=== PATIENT | female | born 1995 | race Caucasian/White ===

== ENCOUNTER 2017-03-10 12:21 | Outpatient (CLI) | payer MEDICAID ==
[~2017-03-10] VITALS: Ht 157.5 cm; Wt 60.7 kg
[~2017-03-10 12:21] MED LIST: CYCL5TAB PO; NAPR-260 PO
[2017-03-10 12:47] VITALS: Ht 157.5 cm; Wt 60.7 kg
[2017-03-10 12:48] VITALS: BP 121/69; RESP 16
[2017-03-10] MEDS ORDERED: PREN1TAB17 PO (12:50)
[2017-03-10] MEDS ORDERED: FERR134T PO (12:51)
--- NOTE | 2017-03-10 13:33 | RADRPT ---
PROCEDURE: US biophysical profile. CLINICAL INDICATION: Hypertension. TECHNIQUE: Multiple sonographic images of the uterus were obtained. The images were revi ewed on a PACS workstation. COMPARISON: No prior studies are available for comparison. FINDINGS: There is a single live intrauterine gestation. heart rate is 143 beats per minute. The position is cephalic. The placenta is anterior grade II with no abruption or previa. The JAIRO is 14.5 cm. (Normal = 5-20 cm.) Breathing Movement: 2 Gross Body Movement: 2 Tone: 2 Qualitative Amniotic Fluid Volume: 2 TOTAL: 8 IMPRESSION: 1. The biophysical score is 8/8. RPTAT: QQ .Chan Gutiérrez MD, Date Time Electronically viewed and signed by .Chan Gutiérrez MD, on 03/10/2017 13:33 .R/
--- NOTE | 2017-03-10 15:01 | CONS ---
Date/Time of Note Date/Time of Note DATE: 03/10/17 TIME: 14:55 Consultation Date/Type/Reason Admit Date/Time March 10, 2017 OB triage consult Reason for Consultation This patient is a 21 years old 2 para 1 living 1 with estimated date of confinement of 04/06/2017 which makes her 36 weeks and 1 day today. She came in from her wrapper counter[facility] s clinic due to the fact that they found her blood pressure to be elevated 149/91. On examination she is a well-developed well-nourished woman, near term, in no acute distress. Her general vital signs appear to be normal with blood pressure of 121/69 , pulse rate 63, respirations 16 , temperature 98.9. Abdomen is soft heart tone is normal . we do not see very many contractions , heart tracing as I mentioned does have good variability, occasional acceleration no evidence of deceleration Constitutional: No chills, No diaphoresis, No disoriented, No febrile, No improved, No no complaints, No other, No poor po, No requiring IVF, No requiring O2 Eyes: No discharge, No no complaints, No other, No pain, No redness, No visual change ENT: No bleeding, No congestion, No discharge, No dysphagia, No no complaints, No other, No pain, No sore throat Respiratory: No cough, No no complaints, No other, No pain, No pleuritic pain, No shortness of breath, No sputum, No wheezing Cardiovascular: No chest pain, No edema, No lightheadedness, No no complaints, No orthopenea, No other, No palpitations, No paroxysmal nocturnal dyspnea Gastrointestinal: No blood, No constipation, No decreased appetite, No diarrhea , No flatus, No nausea, No no complaints, No other, No pain, No passing stool, No vomiting Genitourinary: No bleeding, No discharge, No dysuria, No flank pain, No hematuria, No no complaints, No other Musculoskeletal: other (Pelvic examination was not performed due to the fact that she does not have any contractions), No back pain, No bone/joint pain, No neck pain, No no complaints, No restricted range of motion, No swelling Skin: No bruising, No erythema, No laceration, No no complaints, No other, No pruritis, No rash, No skin lesions Neurologic: No confusion, No dizziness, No focal-weakness, No headache, No no complaints, No other, No seizure, No syncope Endocrine: No dry skin, No no complaints, No other, No polydypsia, No polyuria , No temp intolerance Lymphatic: No adenopathy, No lymphadema, No no complaints, No other, No tender nodes Additional Comments On ultrasound study the report was a single live intrauterine gestation with heart rate of 143 bpm, in vertex presentation , placenta was anterior, her biophysical profile was reported 03/29. NST was reactive Disposition : with these positive finding patient was discharged home with instruction to rest at home and follow her care in her physician's office. I should mention that on repeating her blood pressures in the triage they were not elevated : : 111/61 again 109/57 and again 119/55. Social History Smoking Status: Never smoker Exam/Review of Systems Vital Signs Vitals Vital Signs Date Time Temp Pulse Resp B/P Pulse Ox O2 Delivery O2 Flow Rate FiO2 03/10/17 12:48 98.0 16 121/69 Room Air KIRTI DUMONT MD Mar 10, 2017 15:01
--- NOTE | 2017-03-10 15:05 | TRIAGE ---
OB Triage Datetime Report Generated by CPN: 03/10/2017 15:05 Datetime: 03/10/2017 14:16 Stage of : OB Triage Labor Evaluation Frequency: IRREGULAR Monitor Mode: External Duration (sec)2399: 30-40 Pattern: Normal: <= 5 Contractions in 10 Minutes Resting Tone [place]: Relaxed Heart Rate FHR Baseline Rate: 135 Monitor Mode: External US Variability: Moderate 6-25 bpm Accelerations: 15X15 Decelerations: None Category: Category I Pain Presence: None/Denies Pain Type: N/A Vaginal Exam Membrane Status: Intact Datetime: 03/10/2017 12:54 Stage of : OB Triage Assessment Type: Triage Maternal Assessment Level of Consciousness: Fully Conscious DTR's/Clonus: DTRs 2+; No Clonus Headache: Denies Blurred Vision: No Respiratory Effort: Unlabored; Regular Rhythm; Equal Expansion Breath Sounds, Left: Clear and Equal Breath Sounds, Right: Clear and Equal Nausea/Vomiting: Denies RUQ Epigastric Pain: Denies Lower Extremities Edema: None Degree: None Upper Extremities Edema: None Degree: None Facial Edema: None Temperature Route: Oral Fall Risk Assessment History of Falling: (0) No Secondary Diagnosis: (0) No Ambulatory Aid: (0) Bedrest/Nurse Assist IV Therapy: (0) No Gait: (0) Normal/Bedrest/Immobile Mental Status: (0) Oriented to Own Ability Fall Score: 0 Fall Risk Score Definition: No Risk: No action required Monitor Mode: External Heart Rate FHR Baseline Rate: 145 Monitor Mode: External US Variability: Moderate 6-25 bpm Accelerations: 10X10 Category: Category II Pain Assessment Pain Scale: 0 Pain Presence: None/Denies Pain Type: N/A Datetime: 03/10/2017 12:53 Time of Arrival: 03/10/2017 12:18 EGA: 36.1 Arrived By: Ambulatory Arrived From: Office Chief Complaint: SENT FROM CLINIC FOR ELEVATED B/P Movement: Present Rupture of Membranes: Denies Vaginal Bleeding: None Vaginal Discharge: Denies Recent Sexual Intercouse: Denies Abdominal Trauma: Not Applicable Patient Complaints: Contractions Time Provider Notified: 03/10/2017 13:02 Provider Notified: DR. MAJANO Initial Plan: LUCIE CASTAÑEDA, CALL
== END 2017-03-10 15:15 | disposition home or self-care (01) ==
LOC: OBT 12:21 → L-D 12:22 → OBT 15:15
PROVIDERS: ATTEND Obstetrics & Gynecology
DX: O26.893 Other specified pregnancy related conditions, third trimester (principal); Z3A.36 36 weeks gestation of pregnancy; R03.0 Elevated blood-pressure reading, without diagnosis of hypertension
CPT/HCPCS: 76818; Z7500; G0463

== ENCOUNTER 2017-03-24 16:11 | Outpatient (CLI) | payer MEDICAID ==
[~2017-03-24] VITALS: Ht 154.9 cm; Wt 61.3 kg
[~2017-03-24 16:11] MED LIST changes: -CYCL5TAB PO; +FERR134T PO; -NAPR-260 PO; +PREN1TAB17 PO
[2017-03-24 16:48] VITALS: BP 122/68; PULSE 65; Ht 154.9 cm; Wt 61.3 kg
--- NOTE | 2017-03-24 18:27 | RADRPT ---
PROCEDURE: US OB biophysical profile. CLINICAL INDICATION: evaluation TECHNIQUE: Multiple sonographic images of the pelvis were obtained. The images were reviewed on a PACS workstation. COMPARISON: No prior studies are available for comparison. FINDINGS: There is a single viable intrauterine gestation. Cardiac activity is present with 141 beats per min anuj. There is a vertex presentation. The placenta is anterior. There is no evidence of placental abruption. There is a normal amount of amniotic fluid with an JAIRO = 10.1 cm. Biophysical profile: movement 2/2 tone 2/2. breathing 2/2 JAIRO 2/2 Total 03/29 RPTAT: AA . IMPRESSION: Normal biophysical profile. Physician Nidhi Date Time Electronically viewed and signed by Physician Nidhi on 03/24/2017 18:27 /
--- NOTE | 2017-03-24 20:07 | PN ---
Triage Information Date/Time 03/24/1711/06/1999 Reason for visit: high blood pressure Weeks of Gestation 38w1d /Para Hypertention: none Additional information sent from office for elevated blood pressure Objective Vital Signs Date Time Temp Pulse Resp B/P Pulse Ox O2 Delivery O2 Flow Rate FiO2 03/24/17 16:48 98.3 65 122/68 Heart Rate: 140's Contractions: < 5 Minutes Apart Exam ftp/ long Results/Medications Imaging Results BPP8/8 EFM u.c mild not symptomatic tracing ok Disposition: Discharge Assessment/Plan IUP 38w1d latent phase no HTN UA pending discharge home with routine labor instructions will get u/a result ,if abnormal contact patient since she 's been here for 4hr already JOSE AWAD MD Mar 24, 2017 20:07
[2017-03-24 20:22] LABS: ADD UMIC NO; UR ASCORBIC ACID NEGATIVE (NEGATIVE); UR BILIRUBIN (Dip) NEGATIVE (NEGATIVE); UR BLOOD (Dip) NEGATIVE (NEGATIVE); UR CLARITY CLEAR (CLEAR); UR COLOR STRAW (YELLOW); UR GLUCOSE (Dip) NEGATIVE (NEGATIVE); UR KETONES (Dip) NEGATIVE (NEGATIVE); UR LEUKOCYTE ESTERASE (Dip) NEGATIVE Leu/ul (NEGATIVE); UR NITRITE (Dip) NEGATIVE (NEGATIVE); UR SPECIFIC GRAVITY (Dip) 1.006 (1.003-1.030); UR TOTAL PROTEIN (Dip) NEGATIVE (NEGATIVE); UR UROBILINOGEN (Dip) NEGATIVE (NEGATIVE)
--- NOTE | 2017-03-24 20:44 | TRIAGE ---
OB Triage Datetime Report Generated by CPN: 03/24/2017 20:44 Datetime: 03/24/2017 19:54 Labor Evaluation Frequency: 2-6 Monitor Mode: External Pattern: Normal: <= 5 Contractions in 10 Minutes Resting Tone [place]: Relaxed Heart Rate FHR Baseline Rate: 140 Monitor Mode: External US Variability: Moderate 6-25 bpm Accelerations: 15X15 Decelerations: None Category: Category I Datetime: 03/24/2017 19:30 Pain Assessment Pain Scale: 0 Pain Presence: None/Denies Pain Type: N/A Datetime: 03/24/2017 19:07 Vaginal Exam Dilatation (cms): 1.0 Effacement (%): 30 Station: -2 Exam By: Alfa LEE Vaginal Bleeding: None Cervix, Consistency: Soft Cervix, Position: Posterior Presentation 'A': Cephalic Datetime: 03/24/2017 17:52 Stage of : OB Triage Datetime: 03/24/2017 17:49 Labor Evaluation Frequency: 4-7 Monitor Mode: External Duration (sec)2399: 50-70 Pattern: Normal: <= 5 Contractions in 10 Minutes Resting Tone [place]: Relaxed Heart Rate FHR Baseline Rate: 130 Monitor Mode: External US Variability: Moderate 6-25 bpm Accelerations: 10X10 Decelerations: None Category: Category I Pain Assessment Pain Scale: 0 Pain Presence: None/Denies Pain Type: N/A Pain Goal: 3 Pain Relief Measures: Comfort Measures Vaginal Exam Dilatation (cms): 0.5 Effacement (%): 30 Station: -3 Exam By: S JESUS Vaginal Bleeding: None Cervix, Consistency: Soft Cervix, Position: Posterior Presentation 'A': Cephalic Datetime: 03/24/2017 16:44 Stage of : OB Triage Assessment Type: Triage Maternal Assessment Level of Consciousness: Fully Conscious DTR's/Clonus: DTRs 2+; No Clonus Headache: Denies Blurred Vision: No Respiratory Effort: Unlabored; Regular Rhythm; Equal Expansion Breath Sounds, Left: Clear and Equal Breath Sounds, Right: Clear and Equal Nausea/Vomiting: Denies RUQ Epigastric Pain: Denies Facial Edema: None Temperature Route: Axillary Fall Risk Assessment History of Falling: (0) No Secondary Diagnosis: (0) No Ambulatory Aid: (0) Bedrest/Nurse Assist IV Therapy: (0) No Gait: (0) Normal/Bedrest/Immobile Mental Status: (0) Oriented to Own Ability Fall Score: 0 Fall Risk Score Definition: No Risk: No action required Labor Evaluation Frequency: 0 Monitor Mode: External Pattern: Normal: <= 5 Contractions in 10 Minutes Resting Tone [place]: Relaxed Heart Rate FHR Baseline Rate: 130 Monitor Mode: External US Variability: Moderate 6-25 bpm Accelerations: None Category: Category II Pain Assessment Pain Scale: 0 Pain Presence: None/Denies Pain Type: N/A Pain Goal: 3 Pain Relief Measures: Comfort Measures Datetime: 03/24/2017 16:43 Time of Arrival: 03/24/2017 16:01 EGA: 38.1 Arrived By: Ambulatory Arrived From: Office Chief Complaint: SENT FROM OFFICE TO R/O PIH, INCREASE ALK PHOS.,DENIES UC'S BLEEDING OR UC'S Movement: Present Contractions: Denies/Absent Rupture of Membranes: Denies Vaginal Bleeding: None Vaginal Discharge: Denies Recent Sexual Intercouse: Denies Abdominal Trauma: Not Applicable Patient Complaints: None Initial Plan: MONITOR, VE, BPP Datetime: 03/10/2017 12:54 Fall Score: 0 Fall Risk Score Definition: No Risk: No action required Datetime: 03/10/2017 12:53 EGA: 36.1
== END 2017-03-24 20:00 | disposition home or self-care (01) ==
LOC: OBT 16:11 → L-D 16:12 → OBT 20:00
PROVIDERS: ATTEND Obstetrics & Gynecology
DX: O26.893 Other specified pregnancy related conditions, third trimester (principal); R03.0 Elevated blood-pressure reading, without diagnosis of hypertension; Z3A.38 38 weeks gestation of pregnancy
CPT/HCPCS: 76818; 81003; Z7500; G0463

== ENCOUNTER 2017-04-03 21:22 | Inpatient (IN) | payer MEDICAID ==
[~2017-04-03] VITALS: Ht 154.9 cm; Wt 63.1 kg
[2017-04-03 21:40] VITALS: Ht 154.9 cm; Wt 63.1 kg
--- NOTE | 2017-04-03 22:45 | HP ---
Date/Time of Note Date/Time of Note DATE: 04/03/17 TIME: 22:43 OB - History Hx of Present Free Text/Dictation 39+4 wks GA with suspected PPROM : 2 Para: 1 Care: Good Care Ultrasounds: Normal mid trimester US Obstetrical Complications: None Medical Complications: None Past Family/Social History * Past Medical, Surgical, Family and Obstetric Histories reviewed from chart. OB Admission Exam Physical Exam Cervical Dilatation: 1cm Effacement: 75% Station: -1 Membranes: Intact Heart Rate: 140's Accelerations: Accelerations Present Decelerations: No Decelerations Varibility: Moderate Contractions on Admission: 6-10 Minutes Apart OB Assessment/Plan Reason for admission: observation Plan: Expectant Management ZOE QUINTANILLA M.D. Apr 03, 2017 22:45
[2017-04-03] MEDS ORDERED: OXYTOCIN 30 UNITS/LR 500 ML IV SCH ×3 (23:00)
[2017-04-03] MEDS ORDERED: BUTORPHANOL 2 MG INJ IV PRN (23:00)
[2017-04-03] MEDS ORDERED: IBUPROFEN 600 MG TAB PO PRN (23:00)
[2017-04-03] MEDS ORDERED: MISOPROSTOL 200 MCG TAB PR PRN (23:00)
[2017-04-03] MEDS ORDERED: LACTATED RINGER'S 1,000 ML IV PRN (23:00)
[2017-04-03] MEDS ORDERED: METHYLERGONOVINE 0.2 MG INJ IM PRN (23:00)
[2017-04-03] MEDS ORDERED: AMPICILLIN 2 GM/NS (PMX) 100 ML IV ONE (23:00)
[2017-04-03] MEDS ORDERED: LIDOCAINE 1% (MPF) 30 ML INJ INJ PRN (23:00)
[2017-04-03] MEDS ORDERED: OXYTOCIN 30 UNITS/LR 500 ML IV PRN (23:00)
[2017-04-03] MEDS ORDERED: CARBOPROST 250 MCG INJ IM PRN (23:00)
--- NOTE | 2017-04-03 23:48 | RADRPT ---
PROCEDURE: US OB. CLINICAL INDICATION: Contractions. TECHNIQUE: Multiple sonographic images of the pelvis were obtained. Transabdominal imaging only w as performed. The images were reviewed on a PACS workstation. COMPARISON: 03/24/2017. FINDINGS: Single live intrauterine is identified. Cardiac activity is present with 144 beats per mi nute. There is a vertex presentation. Measurements: BPD = 38 weeks 0 days. HC = 37 weeks 5 days. AC = 39 weeks 3 days. FL = 37 weeks 5 days. Estimated gestational age of approximately 38 weeks 2 days. The estimated date of delivery is 04/15/2017. The EFW = 3560 g which is at the 52nd percentile. Limited evaluation of anatomy is without gross abnormality. The placenta is anterior. IMPRESSION: Single live intrauterine gestation of approximately 38 weeks 2 days. RPTAT: HMVK .Сергей Hurst MD, MD Date Time Electronically viewed and signed by .Сергей Hurst MD, MD on 04/03/2017 23:48 .K/
[2017-04-04 00:39] LABS: BASOPHILS % 0.4 % (0.0-2.0); EOSINOPHILS # 0.1 10^3/ul (0.0-0.5); EOSINOPHILS % 0.9 % (0.0-7.0); HEMATOCRIT 34.9 % (37.0-47.0); HEMOGLOBIN 11.8 g/dl (12.0-16.0); LYMPHOCYTES # 1.8 10^3/ul (0.8-2.9); LYMPHOCYTES % 24.4 % (15.0-51.0); MEAN CORPUSCULAR HEMOGLOBIN 33.2 pg (29.0-33.0); MEAN CORPUSCULAR HGB CONC 33.8 g/dl (32.0-37.0); MEAN CORPUSCULAR VOLUME 98.3 fl (82.0-101.0); MEAN PLATELET VOLUME 10.8 fl (7.4-10.4); MONOCYTE # 0.5 10^3/ul (0.3-0.9); MONOCYTES % 6.1 % (0.0-11.0); NEUTROPHIL # 5.1 10^3/ul (1.6-7.5); NEUTROPHILS % 67.8 % (39.0-77.0); PLATELET COUNT 214 10^3/UL (140-415); RED BLOOD COUNT 3.55 10^6/ul (4.20-5.40); RED CELL DISTRIBUTION WIDTH 12.9 % (11.5-14.5); WHITE BLOOD COUNT 7.5 10^3/ul (4.8-10.8)
[2017-04-04] MEDS: LACTATED RINGER'S 1,000 ML IV SCH ×2 (00:41→10:30)
[2017-04-04 00:45] LABS: ADD UMIC NO; UR ASCORBIC ACID NEGATIVE (NEGATIVE); UR BILIRUBIN (Dip) NEGATIVE (NEGATIVE); UR BLOOD (Dip) NEGATIVE (NEGATIVE); UR CLARITY CLEAR (CLEAR); UR COLOR COLORLESS (YELLOW); UR GLUCOSE (Dip) NEGATIVE (NEGATIVE); UR KETONES (Dip) NEGATIVE (NEGATIVE); UR LEUKOCYTE ESTERASE (Dip) NEGATIVE Leu/ul (NEGATIVE); UR NITRITE (Dip) NEGATIVE (NEGATIVE); UR SPECIFIC GRAVITY (Dip) 1.002 (1.003-1.030); UR TOTAL PROTEIN (Dip) NEGATIVE (NEGATIVE); UR UROBILINOGEN (Dip) NEGATIVE (NEGATIVE)
[2017-04-04 00:57] LABS: ALBUMIN 3.5 g/dl (3.3-4.9); ALBUMIN/GLOBULIN RATIO 1.12; BILIRUBIN,INDIRECT 0.2 mg/dl (0-1.1); BILIRUBIN,TOTAL 0.2 mg/dl (0.2-1.3); CALCIUM 9.1 mg/dl (8.4-10.2); CREATININE 0.54 mg/dl (0.44-1.00); POTASSIUM 4.8 mmol/L (3.5-5.1); TOTAL PROTEIN 6.6 g/dl (6.1-8.1)
[2017-04-04] MEDS ORDERED: AMPICILLIN 2 GM/NS (PMX) 100 ML IV ONE (01:00)
[2017-04-04 01:03] LABS: INR 0.92; PROTIME 12.4 Sec (12.2-14.2)
[2017-04-04 01:06] LABS: PARTIAL THROMBOPLASTIN TIME 25.5 Sec (25.0-35.0)
[2017-04-04] MEDS ORDERED: AMPICILLIN 1 GM/NS (PMX) 50 ML IV SCH (03:00)
[2017-04-04] MEDS: AMPICILLIN 1 GM/NS (PMX) 50 ML IV SCH ×4 (04:45→17:02)
--- NOTE | 2017-04-04 08:05 | TRIAGE ---
OB Triage Datetime Report Generated by CPN: 04/04/2017 08:04 Datetime: 04/04/2017 07:00 Labor Evaluation Frequency: 7 Monitor Mode: External Duration (sec)2399: 50-80 Pattern: Normal: <= 5 Contractions in 10 Minutes Heart Rate FHR Baseline Rate: 145 Monitor Mode: External US FHR Baseline Changes: No Baseline Change Variability: Moderate 6-25 bpm Accelerations: 15X15 Datetime: 04/04/2017 06:00 Labor Evaluation Frequency: 6-7 Monitor Mode: External Duration (sec)2399: 60-90 Pattern: Normal: <= 5 Contractions in 10 Minutes Heart Rate FHR Baseline Rate: 135 Monitor Mode: External US FHR Baseline Changes: No Baseline Change Variability: Moderate 6-25 bpm Category: Category I Datetime: 04/04/2017 05:00 Labor Evaluation Frequency: 4-7 Monitor Mode: External Duration (sec)2399: 60-90 Pattern: Normal: <= 5 Contractions in 10 Minutes Heart Rate FHR Baseline Rate: 145 Monitor Mode: External US FHR Baseline Changes: No Baseline Change Variability: Moderate 6-25 bpm Datetime: 04/04/2017 04:00 Labor Evaluation Frequency: 3-6 Monitor Mode: External Duration (sec)2399: 60-80 Pattern: Normal: <= 5 Contractions in 10 Minutes Heart Rate FHR Baseline Rate: 145 Monitor Mode: External US FHR Baseline Changes: No Baseline Change Variability: Moderate 6-25 bpm Accelerations: 15X15 Datetime: 04/04/2017 03:00 Labor Evaluation Frequency: 2-7 Monitor Mode: External Duration (sec)2399: 50-80 Pattern: Normal: <= 5 Contractions in 10 Minutes Heart Rate FHR Baseline Rate: 135 Monitor Mode: External US FHR Baseline Changes: No Baseline Change Variability: Moderate 6-25 bpm Datetime: 04/04/2017 02:00 Labor Evaluation Frequency: 2-5 Monitor Mode: External Duration (sec)2399: 60-90 Pattern: Normal: <= 5 Contractions in 10 Minutes Heart Rate FHR Baseline Rate: 155 Monitor Mode: External US FHR Baseline Changes: No Baseline Change Variability: Moderate 6-25 bpm Accelerations: 15X15 Datetime: 04/04/2017 01:14 Vaginal Exam Membrane Status: Ruptured Datetime: 04/04/2017 01:00 Stage of : Labor Labor Evaluation Frequency: 2-6 Monitor Mode: External Duration (sec)2399: 70-100 Quality: Mild Pattern: Normal: <= 5 Contractions in 10 Minutes Resting Tone [place]: Relaxed Heart Rate FHR Baseline Rate: 150 Monitor Mode: External US Variability: Moderate 6-25 bpm Accelerations: 15X15 Decelerations: None Category: Category I Pain Assessment Pain Scale: 2 Pain Presence: Intermittent Pain Type: Cramping Pain Location: Abdomen Pain Goal: 3 Pain Relief Measures: Comfort Measures Datetime: 04/04/2017 00:47 Assessment Type: Admission Assessment Vaginal Bleeding: None Maternal Assessment Level of Consciousness: Fully Conscious DTR's/Clonus: DTRs 2+; No Clonus Headache: Denies Blurred Vision: No Respiratory Effort: Unlabored; Regular Rhythm; Equal Expansion Breath Sounds, Left: Clear and Equal Breath Sounds, Right: Clear and Equal Nausea/Vomiting: Denies RUQ Epigastric Pain: Denies Lower Extremities Edema: None Upper Extremities Edema: None Facial Edema: None Fall Risk Assessment History of Falling: (0) No Secondary Diagnosis: (0) No Ambulatory Aid: (0) Bedrest/Nurse Assist IV Therapy: (0) No Gait: (0) Normal/Bedrest/Immobile Mental Status: (0) Oriented to Own Ability Fall Score: 0 Fall Risk Score Definition: No Risk: No action required Pain Presence: None/Denies Membranes Ruptured Date/Time: 04/02/2017 14:00 Membranes Rupture Method: Spontaneous Amniotic Fluid Color: Clear Amniotic Fluid Amount: Small Pool: Positive Nitrazine: Positive ROM Test Kit: Positive Datetime: 04/04/2017 00:00 Stage of : Labor Labor Evaluation Frequency: 3-7 Monitor Mode: External Duration (sec)2399: 70-100 Quality: Mild Pattern: Normal: <= 5 Contractions in 10 Minutes Resting Tone [place]: Relaxed Heart Rate FHR Baseline Rate: 135 Monitor Mode: External US Variability: Moderate 6-25 bpm Accelerations: 15X15 Decelerations: None Category: Category I Pain Assessment Pain Scale: 2 Pain Presence: Intermittent Pain Type: Cramping Pain Location: Abdomen Pain Goal: 3 Pain Relief Measures: Comfort Measures Datetime: 04/03/2017 23:00 Labor Evaluation Frequency: 4-5 Monitor Mode: External Duration (sec)2399: 60-90 Quality: Moderate Pattern: Normal: <= 5 Contractions in 10 Minutes Resting Tone [place]: Relaxed Heart Rate FHR Baseline Rate: 135 Monitor Mode: External US FHR Baseline Changes: No Baseline Change Variability: Moderate 6-25 bpm Accelerations: 15X15 Decelerations: None Category: Category I Datetime: 04/03/2017 22:35 Stage of : OB Triage Labor Evaluation Frequency: 3-6 Monitor Mode: External Duration (sec)2399: 70-100 Quality: Mild Pattern: Normal: <= 5 Contractions in 10 Minutes Resting Tone [place]: Relaxed Heart Rate FHR Baseline Rate: 130 Monitor Mode: External US Variability: Moderate 6-25 bpm Accelerations: 15X15 Decelerations: None Category: Category I Datetime: 04/03/2017 22:00 Labor Evaluation Frequency: 5-6 Monitor Mode: External Duration (sec)2399: 60-90 Quality: Mild Pattern: Normal: <= 5 Contractions in 10 Minutes Resting Tone [place]: Relaxed Heart Rate FHR Baseline Rate: 135 Monitor Mode: External US FHR Baseline Changes: No Baseline Change Variability: Moderate 6-25 bpm Decelerations: None Category: Category I Datetime: 04/03/2017 21:40 Assessment Type: Triage Maternal Assessment Level of Consciousness: Fully Conscious DTR's/Clonus: DTRs 2+; No Clonus Headache: Denies Blurred Vision: No Respiratory Effort: Unlabored; Regular Rhythm; Equal Expansion Breath Sounds, Left: Clear and Equal Breath Sounds, Right: Clear and Equal Nausea/Vomiting: Denies RUQ Epigastric Pain: Denies Lower Extremities Edema: None Degree: None Upper Extremities Edema: None Degree: None Facial Edema: None Fall Risk Assessment History of Falling: (0) No Secondary Diagnosis: (0) No Ambulatory Aid: (0) Bedrest/Nurse Assist IV Therapy: (0) No Gait: (0) Normal/Bedrest/Immobile Mental Status: (0) Oriented to Own Ability Fall Score: 0 Fall Risk Score Definition: No Risk: No action required Datetime: 04/03/2017 21:13 Time of Arrival: 04/03/2017 21:13 EGA: 39.4 Arrived By: Wheelchair Arrived From: Emergency Dept Chief Complaint: LEAKING, [facility] SINCE 04/02 Movement: Present Contractions: Regular Rupture of Membranes: Unsure Vaginal Bleeding: None Vaginal Discharge: Present Recent Sexual Intercouse: Denies Abdominal Trauma: Not Applicable Patient Complaints: Contractions Time Provider Notified: 04/03/2017 22:35 Provider Notified: LABORIST MD QUINTANILLA Initial Plan: VE, ROM+ Datetime: 03/24/2017 16:44 Fall Score: 0 Fall Risk Score Definition: No Risk: No action required Datetime: 03/24/2017 16:43 EGA: 38.1 Datetime: 03/10/2017 12:54 Fall Score: 0 Fall Risk Score Definition: No Risk: No action required Datetime: 03/10/2017 12:53 EGA: 36.1
[2017-04-04 17:10] VITALS: BP 145/82; PULSE 71; RESP 20
--- NOTE | 2017-04-04 17:14 | QN ---
Documentation Comment patient seen and evaluated no complaints vs stable ab gravid nt extremity no edema no calf tenderness ve 4-5/80/-2 fht cat 1 toco regular ctx a/ iup at term admitted for induction for PROM, currently in labor with pitocin p/ expectant vaginal delivery LITA MAJANO MD Apr 04, 2017 17:13
[2017-04-04] MEDS ORDERED: FENTAnyl 2MCG/ML-ROPIV 0.2% 100 ML ONE (19:01)
[2017-04-04] MEDS ORDERED: FENTAnyl 2MCG/ML-ROPIV 0.2% 100 ML BAG EPI SCH (19:30)
[2017-04-04] MEDS ORDERED: DIPHENHYDRAMINE 50 MG INJ IV PRN (19:30)
[2017-04-04] MEDS ORDERED: NALOXONE (0.4 MG/ML) INJ IV PRN (19:30)
[2017-04-04] MEDS ORDERED: ONDANSETRON 4 MG INJ IV PRN ×2 (19:30→20:30)
--- NOTE | 2017-04-04 20:22 | LDN ---
Date/Time of Note Date/Time of Note DATE: 04/04/17 TIME: 20:21 Delivery Summary Weeks of Gestation 39 Placenta Delivered: Spontaneously Meconium: none Episiotomy: No Estimated blood loss: 200 All needle counts correct: Yes Any foreign bodies felt in the: No Problems: Infant Delivery Information Sex Infant Sex: female Apgars 1 Minute: 9 5 Minute: 9 Suctioning Nose & mouth suctioned at stuart: No Delee suction performed: No Umbilical Cord Umbilical cord with: 3 Vessels Cord presentations: no nuchal cord Cord Blood was obtained: Yes LITA MAJANO MD Apr 04, 2017 20:22
[2017-04-04] MEDS ORDERED: METHYLERGONOVINE 0.2 MG INJ IM PRN (20:30)
[2017-04-04] MEDS ORDERED: OXYTOCIN 30 UNITS/LR 500 ML IV PRN (20:30)
[2017-04-04] MEDS ORDERED: LANOLIN 7 GM TUBE TOP PRN (20:30)
[2017-04-04] MEDS ORDERED: OXYCODONE/ASPIRIN (4.88/325) TAB PO PRN ×2 (20:30)
[2017-04-04] MEDS ORDERED: BENZOCAINE 20% 56 ML SPRAY TOP PRN (20:30)
[2017-04-04] MEDS ORDERED: MISOPROSTOL 200 MCG TAB PR PRN (20:30)
[2017-04-04] MEDS ORDERED: CARBOPROST 250 MCG INJ IM PRN (20:30)
[2017-04-04] MEDS ORDERED: SENNA/DOCUSATE NA (8.6MG/50MG) TAB PO PRN (20:30)
[2017-04-04] MEDS ORDERED: WITCH HAZEL/GLYCERIN PAD PR PRN (20:30)
[2017-04-04] MEDS ORDERED: DIPHENHYDRAMINE 25 MG CAP PO PRN (20:30)
[2017-04-04] MEDS: SENNA/DOCUSATE NA (8.6MG/50MG) TAB PO SCH (21:00)
[2017-04-04] MEDS ORDERED: ACETAMINOPHEN 325 MG TAB PO PRN (22:50)
[2017-04-04 23:00] VITALS: BP 122/57; PULSE 79; RESP 19
[2017-04-04 23:15] VITALS: BP 140/69; PULSE 79; RESP 19
[2017-04-04 23:30] VITALS: BP 129/73; RESP 19
[2017-04-04 23:45] VITALS: BP 136/82; RESP 18
[2017-04-05] VITALS (11 sets, daily range): BP systolic 109–136; BP diastolic 55–80; PULSE 55–100; RESP 14–20
[2017-04-05] LABS: INR 0.92; PROTIME 12.4 Sec (12.2-14.2)
[2017-04-05 00:01] LABS: PARTIAL THROMBOPLASTIN TIME 24.9 Sec (25.0-35.0)
[2017-04-05] MEDS: LACTATED RINGER'S 1,000 ML IV* SCH ×3 (00:02→12:22)
[2017-04-05 00:04] LABS: ALBUMIN 3.2 g/dl (3.3-4.9); ALBUMIN/GLOBULIN RATIO 1.06; BILIRUBIN,INDIRECT 0.5 mg/dl (0-1.1); BILIRUBIN,TOTAL 0.5 mg/dl (0.2-1.3); CALCIUM 8.6 mg/dl (8.4-10.2); CREATININE 0.57 mg/dl (0.44-1.00); TOTAL PROTEIN 6.2 g/dl (6.1-8.1); URIC ACID 5.3 mg/dl (3.1-7.9)
[2017-04-05 00:21] LABS: BASOPHILS % 0.2 % (0.0-2.0); HEMATOCRIT 33.8 % (37.0-47.0); HEMOGLOBIN 11.7 g/dl (12.0-16.0); LYMPHOCYTES # 1.3 10^3/ul (0.8-2.9); MEAN CORPUSCULAR HGB CONC 34.6 g/dl (32.0-37.0); MEAN CORPUSCULAR VOLUME 98.3 fl (82.0-101.0); MEAN PLATELET VOLUME 10.8 fl (7.4-10.4); MONOCYTE # 0.5 10^3/ul (0.3-0.9); MONOCYTES % 4.6 % (0.0-11.0); NEUTROPHILS % 83.9 % (39.0-77.0); PLATELET COUNT 224 10^3/UL (140-415); RED BLOOD COUNT 3.44 10^6/ul (4.20-5.40); RED CELL DISTRIBUTION WIDTH 12.7 % (11.5-14.5); WHITE BLOOD COUNT 11.4 10^3/ul (4.8-10.8)
[2017-04-05] MEDS: CEFAZOLIN 2 GM/50 ML (PMX) 50 ML IVPB SCH ×4 (00:23→18:04)
[2017-04-05 01:55] LABS: ADD UMIC YES; UR ASCORBIC ACID NEGATIVE (NEGATIVE); UR BILIRUBIN (Dip) NEGATIVE (NEGATIVE); UR BLOOD (Dip) 3+ mg/dL (NEGATIVE); UR CLARITY SLIGHTLY CLOUDY (CLEAR); UR COLOR YELLOW (YELLOW); UR GLUCOSE (Dip) NEGATIVE (NEGATIVE); UR KETONES (Dip) 1+ mg/dL (NEGATIVE); UR LEUKOCYTE ESTERASE (Dip) NEGATIVE Leu/ul (NEGATIVE); UR NITRITE (Dip) NEGATIVE (NEGATIVE); UR RBC > 182 /HPF (0-5); UR SPECIFIC GRAVITY (Dip) 1.006 (1.003-1.030); UR TOTAL PROTEIN (Dip) NEGATIVE (NEGATIVE); UR UROBILINOGEN (Dip) NEGATIVE (NEGATIVE)
[2017-04-05] MEDS: IBUPROFEN 600 MG TAB PO SCH ×4 (05:30→18:04)
[2017-04-05] MEDS: SENNA/DOCUSATE NA (8.6MG/50MG) TAB PO SCH ×2 (09:01→22:29)
[2017-04-05 10:46] LABS: BASOPHILS % 0.3 % (0.0-2.0); EOSINOPHILS # 0.1 10^3/ul (0.0-0.5); EOSINOPHILS % 0.6 % (0.0-7.0); HEMATOCRIT 35.4 % (37.0-47.0); HEMOGLOBIN 12.4 g/dl (12.0-16.0); LYMPHOCYTES # 1.7 10^3/ul (0.8-2.9); LYMPHOCYTES % 17.4 % (15.0-51.0); MEAN CORPUSCULAR HEMOGLOBIN 34.4 pg (29.0-33.0); MEAN CORPUSCULAR VOLUME 98.3 fl (82.0-101.0); MEAN PLATELET VOLUME 10.7 fl (7.4-10.4); MONOCYTE # 0.8 10^3/ul (0.3-0.9); MONOCYTES % 8.2 % (0.0-11.0); NEUTROPHILS % 73.1 % (39.0-77.0); PLATELET COUNT 230 10^3/UL (140-415); RED CELL DISTRIBUTION WIDTH 12.8 % (11.5-14.5); WHITE BLOOD COUNT 9.8 10^3/ul (4.8-10.8)
[2017-04-05 13:08] LABS: RUBELLA ANTIBODY - IGG 1.64 index
--- NOTE | 2017-04-05 19:18 | QN ---
Documentation Comment ppd 1 patient seen and evaluated no complaints vs stable afebrile abd no distention nt uterine fundus below umbillicus extremity no edema no calf tenderness a/ sp ppd 1 stable afebrile p/ continue present management LITA MAJANO MD Apr 05, 2017 19:18
[2017-04-06] MEDS: IBUPROFEN 600 MG TAB PO SCH ×2 (00:35→06:29)
[2017-04-06 04:00] VITALS: BP 116/78; PULSE 55; RESP 19
[2017-04-06] MEDS: CEFAZOLIN 2 GM/50 ML (PMX) 50 ML IVPB SCH ×2 (06:00)
[2017-04-06 08:30] VITALS: BP 123/63; PULSE 76; RESP 18
--- NOTE | 2017-04-06 15:03 | PD.PPDC ---
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
--- NOTE | 2017-04-06 15:06 | DS ---
Date/Time of Note Date/Time of Note DATE: 04/06/17 TIME: 15:05 Obstetrical Discharge Record Final Diagnosis Final Diagnosis: Term delivered Other Final Diagnosis iup at 39 wks ga, PROM Vaginal Delivery Obstetrical Delivery: Spontaneous Complications Augmentation: No Induction: Yes Gestational Age at Rupture 39 Condition on Discharge Physical Assessment Voiding: Yes Bowel Movement: Yes Breast: Soft, non-tender, Filling Fundus: Firm Calf Tenderness: No Patient Condition: Fair LITA MAJANO MD Apr 06, 2017 15:06
== END 2017-04-06 17:17 | disposition home or self-care (01) | DRG 775 ==
LOC: OBT 21:22 → L-D 21:23 → OBT 23:35 → L-D 04-04 22:47 → PP1 04-05 01:57
PROVIDERS: ADMIT Obstetrics & Gynecology; ATTEND Obstetrics & Gynecology
PROC: 10E0XZZ Delivery of Products of Conception, External Approach (ICD-10-PCS; principal; 2017-04-04)
DX: O42.02 Full-term premature rupture of membranes, onset of labor within 24 hours of rupture (principal); Z37.0 Single live birth; Z3A.39 39 weeks gestation of pregnancy
CPT/HCPCS: 62319; 76815; 80053; 81001; 81003; 84112; 84560; 85025; 85610; 85730; 86592; 86762; 86900; 86901; 87040; 87086; G0463; J0290; J0690; J2590; J3010; J7120